=== PATIENT | male | born 1985 | race American Indian/Alaskan Native ===

== ENCOUNTER 2017-05-29 00:46 | Emergency (ER) | payer SELFPAY ==
[2017-05-29 00:54] VITALS: BP 127/97
[2017-05-29] MEDS ORDERED: PROVENTIL IH ONE (01:12)
== END 2017-05-29 03:25 | disposition left against medical advice (07) ==
LOC: ED 00:46
DX: J45.909 Unspecified asthma, uncomplicated (principal); Z53.21 Procedure and treatment not carried out due to patient leaving prior to being seen by health care provider
CPT/HCPCS: 94640